=== PATIENT | male | born 1945 | race Caucasian/White ===

== ENCOUNTER 2016-10-13 19:07 | Emergency (ER) | payer OTHER ==
[2016-10-13 20:01] VITALS: TEMP 98.1; BMI 29.8
--- NOTE | 2016-10-13 20:17 | PDOC ---
History of Present Illness - General Chief Complaint: Shortness of Breath Stated Complaint: DIFFICULTY BREATHING Time Seen by Provider: 10/13/16 20:15 History Source: Patient Exam Limitations: No Limitations - History of Present Illness Initial Comments: CHIEF COMPLAINT: 71 y/o afebrile male with PMH COPD (patient supposed to be on home O2 but is noncompliant), afib (non compliant with a/c) and alcohol abuse c/ o SOB. HISTORY OF PRESENT ILLNESS: The patient was discharged from a 12 day inpatient stay for PNA and bronchitis about 4 hours ago. He is known to be homeless. He stated he was SOB to nurse. He admits to me he feels palpitations. He denies f /c, n/v/d, CP, abd pain, back pain. Vital signs on arrival are within normal limits. REVIEW OF SYSTEMS: GENERAL/CONSTITUTIONAL: No fever/chills. No weakness. No weight change. HEAD, EYES, EARS, NOSE AND THROAT: No change in vision. No ear pain or discharge. No sore throat. CARDIOVASCULAR: No chest pain. +SOB. +palpitations. RESPIRATORY: No cough, wheezing, or hemoptysis. GASTROINTESTINAL: No abd pain, nausea, vomiting, diarrhea. GENITOURINARY: No dysuria, frequency, or change in urination. MUSCULOSKELETAL: No joint or muscle swelling or pain. No neck or back pain. SKIN: No rash or easy bruising. NEUROLOGIC: No headache, vertigo, loss of consciousness, or loss of sensation. PHYSICAL EXAM: GENERAL: The patient is awake, alert, and fully oriented, in no acute distress. He is sleeping in the ER bed and asking for a sandwich. HEAD: Normal with no signs of trauma. ENT: Pupils equal, round and reactive to light, extraocular movements intact, sclera anicteric, conjunctiva clear. Neck supple. LUNGS: Clear to auscultation bilaterally. Normal excursion. No respiratory distress or use of accessory muscles. CV: RRR, S1/S2, no MRG. Cap refill < 2 sec. ABDOMEN: Soft, non-distended, non-tender even to deep palpation, no hepatomegaly or splenomegaly, no masses. EXTREMITIES: Normal range of motion, no edema. NEUROLOGICAL: Normal speech, normal gait. CN II-XII grossly intact. PSYCH: Normal mood, normal affect. SKIN: Warm, dry, normal turgor, no rashes or lesions noted. Past History - Past Medical History Allergies/Adverse Reactions: Allergies Allergy/AdvReac Type Severity Reaction Status Date / Time ampicillin Allergy Verified 10/13/16 19:56 ciprofloxacin Allergy Verified 10/13/16 19:56 metronidazole [From Flagyl] Allergy Verified 10/13/16 19:56 Penicillins Allergy Verified 10/13/16 19:56 vancomycin Allergy Verified 10/13/16 19:56 SOLUNDRO Allergy Uncoded 10/13/16 19:56 Home Medications: Ambulatory Orders Thiamine HCl [Vitamin B1 -] 100 mg PO DAILY tablet 10/03/16 Albuterol 0.083% Nebulizer Paulina [Ventolin 0.083% Nebulizer Soln -] 1 neb IH Q6H 10/04/16 Aspirin [ASA -] 81 mg PO DAILY 10/04/16 Atorvastatin Ca [Lipitor] 20 mg PO HS 10/04/16 Folic Acid 1 mg PO DAILY 10/04/16 Ipratropium 0.02% Nebulizer [Atrovent 0.02% Nebulizer -] 2 neb NEB QID 10/04/16 Salmeterol/Fluticasone [Advair 250Mcg/50Mcg -] 1 inh PO BID 10/04/16 Tiotropium [place] [Spiriva] 18 mcg IH DAILY 10/04/16 Losartan Potassium [Cozaar -] 25 mg PO DAILY #30 tablet 10/13/16 Metoprolol Succinate [Toprol XL -] 12.5 mg PO DAILY #30 tab.sr.24h 10/13/16 Prednisone 40 mg PO DAILY #30 tab.ds.pk 10/13/16 Risperidone [Risperdal -] 2 mg PO BID #60 tablet 10/13/16 Cardiac Disorders: Yes (A Fib) COPD: Yes - Psycho/Social/Smoking Cessation Hx Suicidal Ideation: No Smoking History: Current every day smoker Have you smoked in the past 12 months: Yes Number of Cigarettes Smoked Daily: 12 Information on smoking cessation initiated: No Hx Alcohol Use: Yes (4cans beer/day) Drug/Substance Use Hx: No Substance Use Type: Alcohol Hx Substance Use Treatment: No *Physical Exam - Vital Signs Last Vital Signs Temp Pulse Resp BP Pulse Ox 98.1 F 86 14 91/54 100 10/13/16 19:57 10/13/16 19:57 10/13/16 19:57 10/13/16 19:57 10/13/16 19:57 Heart Score/ECG Review - ECG Intrepretation Comment:: Twelve-lead EKG was performed and reviewed by Dr. Jackson. There is atrial fibrillation. The axis is normal. The intervals are normal. There are no ST or T wave abnormalities. Impression: Abnormal twelve-lead EKG Medical Decision Making - Medical Decision Making A/P: 71 y/o male with SOB and palpitations. He was discharged 3 hours ago and known to be homeless. He is asking for a sandwich. Plan is as follows: 1. EKG 2. O2 It does not appear that the patient was discharged with any placement in a living situation this evening. I do believe he is here for food and [facility]. He is resting comfortably. EKG unchanged from prior. Will keep the patient overnight in the ER for social work consultation tomorrow morning. The patient has been sleeping all night. O2 sat on RA remains good. I am signing this patient out to my colleague: FRANCA French In brief, this patient is being seen in the ED for a chief complaint of: SOB I have completed the initial assessment interview note and have ordered: oxygen I have reviewed the following results: EKG Pending results are: none Please call the PCP: none Plan for disposition is as follows: social work consult for possible shelter placement *DC/Admit/Observation/Transfer Diagnosis at time of Disposition: SOB (shortness of breath) - Discharge Dispostion Condition at time of disposition: Good
--- NOTE | 2016-10-13 21:00 | PDOC ---
*Physical Exam - Vital Signs Last Vital Signs Temp Pulse Resp BP Pulse Ox 98.1 F 86 14 91/54 100 10/13/16 19:57 10/13/16 19:57 10/13/16 19:57 10/13/16 19:57 10/13/16 19:57 Medical Decision Making - Medical Decision Making 10/13/16 20:57 agree with care from RON Turner. Pt presents for COPD exacerbation. Will treat and determine disposition. 10/13/16 22:33 Pt discharged from hospital at 5pm today. It is unclear if pt had arrangements from for home oxygen. Pt will stay in ER until for social work evaluation. *DC/Admit/Observation/Transfer Diagnosis at time of Disposition: SOB (shortness of breath) - Discharge Dispostion Disposition: HOME Condition at time of disposition: Good - Patient Instructions Additional Instructions: Our community case manager has set you up with a homeless nursing home. Please resources to establish proper housing and a medical clinic for medical care.
--- NOTE | 2016-10-14 07:49 | PDOC ---
*Physical Exam - Vital Signs Last Vital Signs Temp Pulse Resp BP Pulse Ox 98.1 F 87 14 143/55 96 10/13/16 19:57 10/14/16 06:44 10/14/16 06:42 10/14/16 06:42 10/14/16 06:44 Medical Decision Making - Medical Decision Making 10/14/16 07:48 Patient received since patient received in sign out from RON Nieves. Although patient was medically cleared from the ER and ready for discharge patient is awaiting mental health social worker due to living status of being homeless and requesting services. 10/14/16 09:30 Patient seen by supervisor case loading who has set patient up with the homeless halfway and will provide transportation from the hospital. Patient remains asymptomatic. Vital signs stable. Selected Entries 10/14/16 06:42 Pulse Rate [ 87 Right] Respiratory 14 Rate Blood Pressure 143/55 [Left Arm] O2 Sat by Pulse 96 Oximetry (%) *DC/Admit/Observation/Transfer Diagnosis at time of Disposition: SOB (shortness of breath) - Discharge Dispostion Disposition: HOME Condition at time of disposition: Good - Patient Instructions Additional Instructions: Our supervisor case loading has set you up with a homeless halfway. Please resources to establish proper housing and a medical clinic for medical care.
[2016-10-14 10:28] VITALS: BP 124/64; PULSE 72
--- NOTE | 2016-10-14 10:58 | EKG ---
Test Reason : Blood Pressure : / mmHG Vent. Rate : 098 BPM Atrial Rate : 125 BPM P-R Int : 000 ms QRS Dur : 100 ms QT Int : 304 ms P-R-T Axes : 000 003 050 degrees QTc Int : 388 ms ATRIAL FIBRILLATION WITH PREMATURE VENTRICULAR OR ABERRANTLY CONDUCTED COMPLEXES ABNORMAL ECG WHEN COMPARED WITH ECG OF 12-OCT-2016 18:03, NO SIGNIFICANT CHANGE WAS FOUND Confirmed by RAI CHIRINOS MD ([id number]) on 10/14/2016 10:57:50 AM Referred By: Confirmed By:RAI CHIRINOS MD
== END 2016-10-14 10:20 | disposition home or self-care (01) ==
LOC: JER 19:07
DX: R06.02 Shortness of breath (principal); J44.9 Chronic obstructive pulmonary disease, unspecified; F17.210 Nicotine dependence, cigarettes, uncomplicated
CPT/HCPCS: 93005; 93010; 99283-25

== ENCOUNTER 2016-10-14 12:26 | Emergency (ER) | payer OTHER ==
[2016-10-14 12:53] VITALS: TEMP 98; BMI 27.1
--- NOTE | 2016-10-14 13:24 | PDOC ---
History of Present Illness - General History Source: Patient Exam Limitations: No Limitations - History of Present Illness Initial Comments: 10/14/16 13:33 The patient is a 71 year old male, with a significant past medical history of COPD (noncompliant with O2), afib, lung ass (beneigh), HTN, HLD, tobacco dependent, who presents to the emergency department with SOB today. Patient was discharged from the hospital 5:00pm 10/13/16 and returned 3 hours later at 8: 00pm. Patient was discharged today and was given money to get to homeless half-way and when he got there called EMS. According to EMS patient smoked when he got to the half-way and his afib returned. Patient reports being not being able to breathe and having a productive cough with chest pain. Patient is known to be verbally abuse with medical personnel and easily agitated. He denies any recent fevers, chills, headache or dizziness. He denies any recent vomit, diarrhea or constipation. Allergies: As per nursing notes. Social History: Current smoker. Homeless <Liborio Schmid - Last Filed: 10/14/16 13:44> - General History Source: Patient Exam Limitations: No Limitations <Yane Cm - Last Filed: 10/14/16 15:12> - General Chief Complaint: Shortness of Breath Stated Complaint: SOB Time Seen by Provider: 10/14/16 13:07 Past History <Liborio Schmid - Last Filed: 10/14/16 13:44> - Past Medical History Cardiac Disorders: Yes (A Fib) COPD: Yes - Psycho/Social/Smoking Cessation Hx Suicidal Ideation: No Smoking History: Current every day smoker Have you smoked in the past 12 months: Yes Number of Cigarettes Smoked Daily: 12 Information on smoking cessation initiated: No Hx Alcohol Use: Yes (4cans beer/day) Drug/Substance Use Hx: No Substance Use Type: Alcohol Hx Substance Use Treatment: No <Yane Cm - Last Filed: 10/14/16 15:12> - Past Medical History Allergies/Adverse Reactions: Allergies Allergy/AdvReac Type Severity Reaction Status Date / Time ampicillin Allergy Verified 10/14/16 12:54 ciprofloxacin Allergy Verified 10/14/16 12:54 metronidazole [From Flagyl] Allergy Verified 10/14/16 12:54 Penicillins Allergy Verified 10/14/16 12:54 vancomycin Allergy Verified 10/14/16 12:54 SOLUNDRO Allergy Uncoded 10/14/16 12:54 Home Medications: Ambulatory Orders Thiamine HCl [Vitamin B1 -] 100 mg PO DAILY tablet 10/03/16 Albuterol 0.083% Nebulizer Paulina [Ventolin 0.083% Nebulizer Soln -] 1 neb IH Q6H 10/04/16 Aspirin [ASA -] 81 mg PO DAILY 10/04/16 Atorvastatin Ca [Lipitor] 20 mg PO HS 10/04/16 Folic Acid 1 mg PO DAILY 10/04/16 Ipratropium 0.02% Nebulizer [Atrovent 0.02% Nebulizer -] 2 neb NEB QID 10/04/16 Salmeterol/Fluticasone [Advair 250Mcg/50Mcg -] 1 inh PO BID 10/04/16 Tiotropium [place] [Spiriva] 18 mcg IH DAILY 10/04/16 Losartan Potassium [Cozaar -] 25 mg PO DAILY #30 tablet 10/13/16 Metoprolol Succinate [Toprol XL -] 12.5 mg PO DAILY #30 tab.sr.24h 10/13/16 Prednisone 40 mg PO DAILY #30 tab.ds.pk 10/13/16 Risperidone [Risperdal -] 2 mg PO BID #60 tablet 10/13/16 Unobtainable 10/14/16 Review of Systems - Review of Systems Able to Perform ROS?: Yes Comments:: 10/14/16 13:35 GENERAL/CONSTITUTIONAL: No: fever, chills, weakness, loss of appetite. HEAD, EYES, EARS, NOSE AND THROAT: No: change in vision, ear pain, discharge, sore throat, throat swelling. CARDIOVASCULAR: +chest pain. No: lightheadedness, palpitations, syncope RESPIRATORY: +SOB. No: cough, wheezing, hemoptysis, stridor. GASTROINTESTINAL: No: nausea, vomiting, diarrhea, abdominal cramping, rectal bleeding, constipation. GENITOURINARY: No: dysuria, hematuria, frequency, urgency, flank pain. MUSCULOSKELETAL: No: back pain, neck pain, joint pain, muscle swelling or pain SKIN : No: lesions, pallor, rash or easy bruising. NEUROLOGIC: No: headache, vertigo, paresthesias, weakness ENDOCRINE: No: unexplained weight gain or loss HEMATOLOGIC/LYMPHATIC: No: anemia, easy bleeding, swelling nodes. <SharmaineLiborio - Last Filed: 10/14/16 13:44> *Physical Exam - Vital Signs Last Vital Signs Temp Pulse Resp BP Pulse Ox 98 F 93 H 18 108/53 96 10/14/16 12:50 10/14/16 12:50 10/14/16 12:50 10/14/16 12:50 10/14/16 12:50 - Physical Exam Comments: 10/14/16 13:44 GENERAL: The patient is in no acute distress. Disheveled appearing. HEAD: Normal with no signs of trauma. EYES: PERRLA, EOMI, sclera anicteric, conjunctiva clear. ENT: Ears normal, nares patent, oropharynx clear without exudates. Moist mucous membranes. NECK: Normal range of motion, supple without lymphadenopathy, JVD, or masses. LUNGS: Expiratory and inspiratory rhonchorous breath sounds. HEART: IrRegular rate and rhythm, normal S1 and S2 without murmur, rub or gallop. ABDOMEN: Soft, nontender, normoactive bowel sounds. No guarding, no rebound. No masses palpable. EXTREMITIES: Normal range of motion, no edema. No clubbing or cyanosis. No erythema, or tenderness. NEUROLOGICAL: Cranial nerves II through XII grossly intact. Normal speech. No focal neurological deficits. MUSCULOSKELETAL: Back non-tender to palpation, no CVA tenderness SKIN: Warm, Dry, normal turgor, no rashes or lesions noted. <Liborio Schmid - Last Filed: 10/14/16 13:44> - Vital Signs Last Vital Signs Temp Pulse Resp BP Pulse Ox 98 F 93 H 18 108/53 96 10/14/16 12:50 10/14/16 12:50 10/14/16 12:50 10/14/16 12:50 10/14/16 12:50 <Yane Cm - Last Filed: 10/14/16 15:12> Heart Score/ECG Review #1 ECG reviewed & interpreted by me at: 14:18 10/14/16 14:18 Afib rate of 106bpm [place] nml No st elevations or depressions T waves upright 10/14/16 14:20 <Yane Cm - Last Filed: 10/14/16 15:12> Medical Decision Making - Medical Decision Making 10/14/16 13:23 A portion of this note was documented by scribe services under my direction. I have reviewed the details of the note, within reason, and agree with the documentation with the following case summary and management plan written by me. Nursing documentation reviewed and incorporated into medical decision making 10/14/16 15:00 This is a 71 yo M w/ a history of COPD (noncompliant with O2), afib (? xeralto) , benign lung mass, HTN, HLD, tobacco dependent, who presents to the emergency department with SOB today. Pt was recently admitted to the hospital for pneumonia. He was discharged to the half-way yesterday afternoon. He was sent in a cab to the nearest half-way. He called EMS and returned to the ER last night and stayed in the ER overnight until the morning. He was discharged again this morning, sent again to the half-way by cab. He returned to the Er again via EMS HE states he began to have afib after smoking. Patient reports being not being able to breathe and having a productive cough with chest pain. 10/14/16 15:02 EKG performed Demonstrates Afib with RVR Will give Metoprolol Rhoncherous breath sounds Given Neb Pt became verbally abusive to staff Cursing at nurse to give him a tray of food NOW Pt will be discharged Call placed to Case management who has seen him in the ER The patient will not be given cab money back to the half-way Will discharge <Yane Cm - Last Filed: 10/14/16 15:12> *DC/Admit/Observation/Transfer - Attestations Scribe Attestion: 10/14/16 13:36 Documentation prepared by Liborio Schmid, acting as medical equipment sales for Yane Cm MD. <Liborio Schmid - Last Filed: 10/14/16 13:44> - Discharge Dispostion Admit: No <Yane Cm - Last Filed: 10/14/16 15:12> Diagnosis at time of Disposition: Noncompliance Atrial fibrillation Qualifiers: Atrial fibrillation type: chronic Qualified Code(s): I48.2 - Chronic atrial fibrillation - Discharge Dispostion Disposition: HOME Condition at time of disposition: Stable - Patient Instructions Printed Discharge Instructions: DI for Atrial Fibrillation, DI for Chronic Obstructive Pulmonary Disease Additional Instructions: PLEASE FOLLOW UP WITH THE DOCTORS YOU WERE ASKED TO FOLLOW UP WITH WHEN YOU WERE DISCHARGED THANK YOU
[2016-10-14] MEDS ORDERED: ALBUTEROL SO4 2.5/IPRATROPIUM 0.5 INH SOL 3 ML VIAL.NEB. NEB ONE (13:39)
[2016-10-14] MEDS ORDERED: ALBUTEROL SO4 0.083% IH SOL 2.5 MG/3 ML VIAL.NEB. NEB ONE (14:12)
[2016-10-14] MEDS ORDERED: METOPROLOL TARTRATE 25 MG TABLET (FP) PO ONE ×2 (14:13→14:14)
[2016-10-14] MEDS ORDERED: CARVEDILOL 12.5 MG TABLET (FP) ONE (14:49)
[2016-10-14 15:46] VITALS: BP 127/75; PULSE 96
--- NOTE | 2016-10-14 17:59 | EKG ---
Test Reason : Blood Pressure : / mmHG Vent. Rate : 106 BPM Atrial Rate : 093 BPM P-R Int : 000 ms QRS Dur : 100 ms QT Int : 328 ms P-R-T Axes : 000 -08 036 degrees QTc Int : 435 ms ATRIAL FIBRILLATION WITH RAPID VENTRICULAR RESPONSE ABNORMAL ECG WHEN COMPARED WITH ECG OF 13-OCT-2016 21:05, NO SIGNIFICANT CHANGE WAS FOUND Confirmed by RAI CHIRINOS MD ([id number]) on 10/14/2016 5:59:08 PM Referred By: Confirmed By:RAI CHIRINOS MD
== END 2016-10-14 15:46 | disposition home or self-care (01) ==
LOC: JER 12:26
PROC: 3E0F7GC Introduction of Other Therapeutic Substance into Respiratory Tract, Via Natural or Artificial Opening (ICD-10-PCS; principal; 2016-10-14)
DX: J44.9 Chronic obstructive pulmonary disease, unspecified (principal); I48.2 Chronic atrial fibrillation; I10 Essential (primary) hypertension; E78.5 Hyperlipidemia, unspecified; E78.00 Pure hypercholesterolemia, unspecified; R91.8 Other nonspecific abnormal finding of lung field; F17.210 Nicotine dependence, cigarettes, uncomplicated; Z91.14 Patient's other noncompliance with medication regimen; Z59.0 Homelessness
CPT/HCPCS: 71010-TC; 93005; 93010; 94640; 99282-25

== ENCOUNTER 2016-10-14 20:14 | Emergency (ER) | payer OTHER ==
[2016-10-14] MEDS ORDERED: ALBUTEROL SO4 2.5/IPRATROPIUM 0.5 INH SOL 3 ML VIAL.NEB. NEB ONE ×3 (20:39→22:55)
[2016-10-14 21:11] VITALS: BP 107/78; PULSE 90; TEMP 98.2; BMI 27.1
--- NOTE | 2016-10-14 21:55 | PDOC ---
[id number] is a 71 year old male, with a significant past medical history of COPD (noncompliant with O2), afib, lung mass (benign), HTN, HLD, tobacco dependent, alcohol abuse, who presents to the emergency department with SOB. The patient was discharged earlier today after being abusive to staff and refusing to cooperate. The patient is homeless and came in by ambulance again. The patient is being abusive and refusing to cooperate. The patient was treated for pneumonia on 10/02/16. The patient had a chest x-ray earlier today, which revealed no acute process and a large heart. He is not on anticoagulation. Social: Homeless, smokes 0.5 packs of cigarettes a day, daily alcohol intake <Cate Mir - Last Filed: 10/14/16 22:14> <Addie Mcdaniel - Last Filed: 10/19/16 18:22> - General Chief Complaint: Shortness of Breath Stated Complaint: DIFF BREATHING Time Seen by Provider: 10/14/16 20:23 Past History <Cate Mir - Last Filed: 10/14/16 22:14> - Past Medical History Cardiac Disorders: Yes (A-Fib) COPD: Yes - Psycho/Social/Smoking Cessation Hx Suicidal Ideation: No Smoking History: Current every day smoker Have you smoked in the past 12 months: Yes Number of Cigarettes Smoked Daily: 10 Information on smoking cessation initiated: No Hx Alcohol Use: Yes (Beer 3-24 oz) Drug/Substance Use Hx: No Substance Use Type: Alcohol Hx Substance Use Treatment: No <Addie Mcdaniel - Last Filed: 10/19/16 18:22> - Past Medical History Allergies/Adverse Reactions: Allergies Allergy/AdvReac Type Severity Reaction Status Date / Time ampicillin Allergy Verified 10/14/16 21:11 ciprofloxacin Allergy Verified 10/14/16 21:11 metronidazole [From Flagyl] Allergy Verified 10/14/16 21:11 Penicillins Allergy Verified 10/14/16 21:11 vancomycin Allergy Verified 10/14/16 21:11 SOLUNDRO Allergy Uncoded 10/14/16 21:11 Home Medications: Ambulatory Orders Thiamine HCl [Vitamin B1 -] 100 mg PO DAILY tablet 10/03/16 Albuterol 0.083% Nebulizer Paulina [Ventolin 0.083% Nebulizer Soln -] 1 neb Q6H 10/04/16 Aspirin [ASA -] 81 mg PO DAILY 10/04/16 Atorvastatin Ca [Lipitor] 20 mg PO HS 10/04/16 Folic Acid 1 mg PO DAILY 10/04/16 Ipratropium 0.02% Nebulizer [Atrovent 0.02% Nebulizer -] 2 neb NEB QID 10/04/16 Salmeterol/Fluticasone [Advair 250Mcg/50Mcg -] 1 inh PO BID 10/04/16 Tiotropium [place] [Spiriva] 18 mcg IH DAILY 10/04/16 Losartan Potassium [Cozaar -] 25 mg PO DAILY #30 tablet 10/13/16 Metoprolol Succinate [Toprol XL -] 12.5 mg PO DAILY #30 tab.sr.24h 10/13/16 Prednisone 40 mg PO DAILY #30 tab.ds.pk 10/13/16 Risperidone [Risperdal -] 2 mg PO BID #60 tablet 10/13/16 Unobtainable 10/14/16 Review of Systems - Review of Systems Able to Perform ROS?: Yes Comments:: 10/14/16 22:14 CONSTITUTIONAL: Absent: fever, chills, diaphoresis, generalized weakness, malaise, loss of appetite HEENT: Absent: rhinorrhea, nasal congestion, throat pain, throat swelling, difficulty swallowing, mouth swelling, ear pain, eye pain, visual Changes CARDIOVASCULAR: Absent: chest pain, syncope, palpitations, irregular heart rate, lightheadedness , peripheral edema RESPIRATORY: +SOB. Absent: cough, dyspnea with exertion, orthopnea, wheezing, stridor, hemoptysis GASTROINTESTINAL: Absent: abdominal pain, abdominal distension, nausea, vomiting, diarrhea, constipation, melena, hematochezia GENITOURINARY: Absent: dysuria, frequency, urgency, hesitancy, hematuria, flank pain, genital pain MUSCULOSKELETAL: Absent: myalgia, arthralgia, joint swelling SKIN: Absent: rash, itching, pallor NEUROLOGIC: Absent: headache, focal weakness or paresthesias, dizziness, unsteady gait, seizure, mental status changes, bladder or bowel incontinence PSYCHIATRIC: Absent: anxiety, depression, suicidal or homicidal ideation, hallucinations. <Cate Mir - Last Filed: 10/14/16 22:14> *Physical Exam - Vital Signs Last Vital Signs Temp Pulse Resp BP Pulse Ox 98.2 F 90 19 107/78 97 10/14/16 21:06 10/14/16 21:06 10/14/16 21:06 10/14/16 21:06 10/14/16 21:06 - Physical Exam Comments: 10/14/16 22:15 GENERAL: +Disheveled. Well developed, well nourished. Awake and alert. No acute distress. HEENT: Normocephalic, atraumatic. PERRLA, EOMI. No conjunctival pallor. Sclera are non- icteric. Moist mucous membranes. Oropharynx is clear. NECK: Supple. Full ROM. No JVD. Carotid pulses 2+ and symmetric, without bruits. No thyromegaly. No lymphadenopathy. CARDIOVASCULAR: Regular rate and rhythm. No murmurs, rubs, or gallops. Distal pulses are 2+ and symmetric. PULMONARY: No evidence of respiratory distress. Lungs clear to auscultation bilaterally. No wheezing, rales or rhonchi. ABDOMINAL: Soft. Non-tender. Non-distended. No rebound or guarding. No organomegaly. Normoactive bowel sounds. MUSCULOSKELETAL Normal range of motion at all joints. No bony deformities or tenderness. No CVA tenderness. EXTREMITIES: No cyanosis. No clubbing. No edema. No calf tenderness. SKIN: Warm and dry. Normal capillary refill. No rashes. No jaundice. NEUROLOGICAL: Alert, awake, appropriate. Cranial nerves 2-12 intact. No deficits to light touch and temperature in face, upper extremities and lower extremities. No motor deficits in the in face, upper extremities and lower extremities. PSYCHIATRIC: Cooperative. Good eye contact. Appropriate mood and affect. <Cate Mir - Last Filed: 10/14/16 22:14> - Vital Signs Last Vital Signs Temp Pulse Resp BP Pulse Ox 98.2 F 90 19 107/78 97 10/14/16 21:06 10/14/16 21:06 10/14/16 21:06 10/14/16 21:06 10/14/16 21:06 <Addie Mcdaniel - Last Filed: 10/19/16 18:22> Medical Decision Making - Medical Decision Making 10/15/16 01:12 pt has long h/o copd -pt received resp treatment.he currently does not have wheezing plan -pt to be seen by social science teacher in the morning 10/15/16 02:08 <Addie Mcdaniel - Last Filed: 10/19/16 18:22> *DC/Admit/Observation/Transfer - Attestations Scribe Attestion: 10/14/16 22:14 Documentation prepared by Cate Mir, acting as medical sales associate for Addie Mcdaniel MD/DO. <Cate Mir - Last Filed: 10/14/16 22:14> <Addie Mcdaniel - Last Filed: 10/19/16 18:22> Diagnosis at time of Disposition: Noncompliance, Homeless - Discharge Dispostion Disposition: HOME Condition at time of disposition: Stable - Patient Instructions Printed Discharge Instructions: DI for Physical Exam -- Adult
[2016-10-14] MEDS ORDERED: AZITHROMYCIN 250 MG TABLET (FP) PO ONE (22:06)
[2016-10-14] MEDS ORDERED: AZITHROMYCIN 250 MG TABLET (FP) ONE (22:55)
[2016-10-15] MEDS ORDERED: MAG HYDROX/AL HYDROX/SIMETH 30 ML UNIT-DOSE CUP ONE (01:49)
[2016-10-15] MEDS ORDERED: ASPIRIN 81 MG CHEWABLE TABLETS PO ONE (02:45)
--- NOTE | 2016-10-15 06:59 | PDOC ---
*Physical Exam - Vital Signs Last Vital Signs Temp Pulse Resp BP Pulse Ox 98.2 F 90 19 107/78 97 10/14/16 21:06 10/14/16 21:06 10/14/16 21:06 10/14/16 21:06 10/14/16 21:06 ED Treatment Course - Medications Given in the ED: ED Medications Discontinued Medications Generic Name Dose Route Start Last Admin Trade Name Tommie PRN Reason Stop Dose Admin Albuterol/Ipratropium 1 amp 10/14/16 22:06 10/14/16 23:07 Duoneb - NEB 10/14/16 22:07 1 amp ONCE ONE Administration Aspirin 81 mg 10/15/16 02:45 10/15/16 02:46 Asa - PO 10/15/16 02:46 81 mg NOW ONE Administration Azithromycin 500 mg 10/14/16 22:06 10/14/16 23:07 Zithromax - PO 10/14/16 22:07 500 mg ONCE ONE Administration Medical Decision Making - Medical Decision Making 10/15/16 06:55 Pt rested all night in the department. Now he wants to walk outside. Pt has in and out of the department the last three days. Offered to have social work see him. Pt he has not waited for them. Will discharge pt. *DC/Admit/Observation/Transfer Diagnosis at time of Disposition: Noncompliance, Homeless - Discharge Dispostion Disposition: HOME Condition at time of disposition: Stable Admit: No - Patient Instructions Printed Discharge Instructions: DI for Physical Exam -- Adult
--- NOTE | 2016-10-15 14:10 | EKG ---
Test Reason : Blood Pressure : / mmHG Vent. Rate : 098 BPM Atrial Rate : 110 BPM P-R Int : 000 ms QRS Dur : 100 ms QT Int : 350 ms P-R-T Axes : 000 -20 035 degrees QTc Int : 446 ms ATRIAL FIBRILLATION ABNORMAL ECG WHEN COMPARED WITH ECG OF 14-OCT-2016 14:07, NO SIGNIFICANT CHANGE WAS FOUND Confirmed by DEJAH SHORE MD ([id number]) on 10/15/2016 2:10:30 PM Referred By: Confirmed By:DEJAH SHORE MD
== END 2016-10-15 07:12 | disposition home or self-care (01) ==
LOC: JER 20:14
PROC: 3E0F7GC Introduction of Other Therapeutic Substance into Respiratory Tract, Via Natural or Artificial Opening (ICD-10-PCS; principal; 2016-10-14)
DX: Z91.19 Patient's noncompliance with other medical treatment and regimen (principal); Z59.0 Homelessness; J44.9 Chronic obstructive pulmonary disease, unspecified
CPT/HCPCS: 93005; 93010; 94640; 99282-25